=== PATIENT | male | born 1985 | race Native Hawaiian/Other Pacific Islander ===

== ENCOUNTER 2018-01-30 20:42 | Emergency (ER) | payer OTHER ==
[2018-01-30 21:12] VITALS: BMI 24.3
[2018-01-30] MEDS ORDERED: TDAP Vaccine 0.5 mL Syr IM ONE (21:12)
[2018-01-30 21:13] VITALS: RESP 18; O2SAT 100
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
[2018-01-31 01:32] VITALS: BP 125/82; PULSE 86; TEMP 97.2
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
== END 2018-01-30 22:45 | disposition home or self-care (01) ==
LOC: ED 20:42
DX: S02.2XXA Fracture of nasal bones, initial encounter for closed fracture (principal); S00.83XA Contusion of other part of head, initial encounter; W50.0XXA Accidental hit or strike by another person, initial encounter; Y93.68 Activity, volleyball (beach) (court); Y92.39 Other specified sports and athletic area as the place of occurrence of the external cause; Z23 Encounter for immunization